=== PATIENT | male | born 1960 | race Caucasian/White ===

== ENCOUNTER 2023-10-14 18:20 | Emergency (ER) | payer MEDICARE, OTHER ==
[2023-10-14] MEDS ORDERED: Lidocaine 2% 11 ML Jelly Filled Syringe MUCMEM ONE (19:45)
[2023-10-14] MEDS: Lidocaine 2% 11 ML Jelly Filled Syringe MUCMEM ONE (19:54)
== END 2023-10-14 20:04 | disposition home or self-care (01) ==
LOC: JD.ED 18:20
DX: R33.9 Retention of urine, unspecified (principal); Z85.46 Personal history of malignant neoplasm of prostate; I10 Essential (primary) hypertension; Z79.899 Other long term (current) drug therapy; Z88.0 Allergy status to penicillin
CPT/HCPCS: 51702; 99283

== ENCOUNTER 2023-10-15 10:05 | Emergency (ER) | payer MEDICARE, OTHER ==
[2023-10-15 11:23] LABS: BASOPHILS PERCENT AUTO 0.5 % (0.0-1.0); EOSINOPHILS PERCENT AUTO 0.3 % (0.0-6.0); HEMATOCRIT 49.2 % (42.0-52.0); HEMOGLOBIN 16.1 gm/dl (14.0-18.0); IMMATURE GRAN ABSOLUTE AUTO 0.05 K/mm3 (0.00-0.05); IMMATURE GRAN PERCENT AUTO 0.7 % (0.0-0.4); LYMPHOCYTES ABSOLUTE AUTO 0.7 K/mm3 (1.0-4.8); LYMPHOCYTES PERCENT AUTO 9.7 % (24.0-44.0); MEAN CORPUSCULAR HEMOGLOBIN 30.3 pg (28.0-32.0); MEAN CORPUSCULAR HGB CONC 32.7 g/dl (32.0-36.0); MEAN CORPUSCULAR VOLUME 92.7 fl (83.0-99.0); MEAN PLATELET VOLUME 8.6 fl (9.4-12.4); MONOCYTES ABSOLUTE AUTO 0.7 K/mm3 (0.0-0.8); MONOCYTES PERCENT AUTO 8.9 % (0.0-8.0); NEUTROPHILS PERCENT AUTO 79.9 % (41.0-71.0); PLATELET COUNT,PLT 172 K/mm3 (150-400); RED BLOOD CELL COUNT 5.31 M/mm3 (4.52-5.90); WHITE BLOOD CELL COUNT,WBC 7.44 K/mm3 (3.9-11.3)
[2023-10-15 11:43] LABS: ALBUMIN 3.5 g/dl (3.4-5.0); ANION GAP 7.3 (5-15); CALCIUM 9.2 mg/dL (8.5-10.1); CREATININE 1.2 mg/dL (0.7-1.3); EST CRCL DRUG DOSING (CG) 61.37 mL/min; MAGNESIUM 1.7 mg/dL (1.8-2.4); POTASSIUM,K 4.3 mEq/L (3.5-5.1); PROTEIN TOTAL,TP 6.9 g/dl (6.4-8.2)
[2023-10-15 12:32] LABS: APPEARANCE,URINE CLEAR (Clear); BILIRUBIN,URINE NEGATIVE (Negative); COLOR,URINE YELLOW (Yellow); GLUCOSE,URINE TRACE (Negative); KETONES,URINE NEGATIVE (Negative); LEUKOCYTE ESTERASE,URINE 1+ (Negative); NITRITE,URINE POSITIVE (Negative); OCCULT BLOOD,URINE 2+ (Negative); PROTEIN,URINE 1+ (Negative); UROBILINOGEN,URINE 0.2 (0.2-1.0)
[2023-10-15 13:21] LABS: BACTERIA,URINE MANY /hpf (FEW); HYALINE CASTS,URINE 0-5 /lpf (0-5); MUCUS,URINE FEW /hpf (FEW); RBC,URINE 40-50 /hpf (0-5); SQUAMOUS EPITHELIAL CELLS,UR 0-5 /hpf (0-5)
[2023-10-15] MEDS: Lidocaine 2% 11 ML Jelly Filled Syringe MUCMEM STA (14:04)
[2023-10-15] MEDS: Lidocaine 2% 11 ML Jelly Filled Syringe MUCMEM ONE (16:20)
[2023-10-15] MEDS ORDERED: Levofloxacin 500 MG Tab ONE (17:06)
[2023-10-15] MEDS: Levofloxacin 500 MG Tab PO ONE (17:08)
== END 2023-10-15 17:19 | disposition home or self-care (01) ==
LOC: JD.ED 10:05
DX: N39.0 Urinary tract infection, site not specified (principal); N40.1 Benign prostatic hyperplasia with lower urinary tract symptoms; N13.8 Other obstructive and reflux uropathy; I10 Essential (primary) hypertension; Z88.0 Allergy status to penicillin; Z79.899 Other long term (current) drug therapy
CPT/HCPCS: 36415; 51702; 80053; 81001; 81003; 83735; 85025; 85730; 87086; 99283; A9270-GY